=== PATIENT | male | born 1965 | race African-American/Black ===

== ENCOUNTER 2024-04-27 00:37 | Inpatient (IN) | payer OTHER ==
[2024-04-27 01:54] LABS: VENOUS BASE EXCESS -1.6 mmol/L (-2-2); VENOUS O2 SATURATION 48.3 % (70-80); VENOUS PCO2 39.2 mmHg (38-52); VENOUS PH 7.389 (7.310-7.410)
[2024-04-27] MEDS ORDERED: AZITHROMYCIN IVPB 500 MG/250 ML BAG IVPB ONE (02:05)
[2024-04-27] MEDS: ACETAMINOPHEN 1000 MG/100 ML BAG IVPB ONE (02:09)
[2024-04-27 02:16] LABS: EPI CELLS REVIEW /uL (0-25.1); HYALINE CASTS REVIEW /uL (0-3.1); PH,URINE 5.5 (5.0-8.0); URINE APPEARANCE CLEAR; URINE BACTERIA REVIEW /uL (0-1359); URINE BILIRUBIN NEGATIVE (NEGATIVE); URINE COLOR YELLOW; URINE GLUCOSE (UA) 3+ (NEGATIVE); URINE KETONE TRACE (NEGATIVE); URINE LEUK ESTERASE NEGATIVE (NEGATIVE); URINE NITRITE NEGATIVE (NEGATIVE); URINE PROTEIN 1+ (NEGATIVE); URINE RBC REVIEW /uL (0-23.9)
[2024-04-27] MEDS: CEFTRIAXONE 1 GM in DEXTROSE 5%-WATER - 100 ML IVPB ONE (02:32)
[2024-04-27] MEDS: AZITHROMYCIN IVPB 500 MG in DEXTROSE 5%-WATER - 250 ML IVPB ONE (02:32)
[2024-04-27] MEDS ORDERED: ACETAMINOPHEN INJECTION 100 ML ONE (02:42)
[2024-04-27] MEDS ORDERED: CEFTRIAXONE 1 G/50 ML PREMIX 50 ML IVPB ONE (02:42)
[2024-04-27 02:55] LABS: BASO % 0.2 % (0-2.0); EOS % 0.4 % (0-4.5); HEMATOCRIT 30.2 % (35.4-49); HEMOGLOBIN 9.8 GM/dL (11.7-16.9); LYMPH % 12.4 % (8-40); MCH 23.9 pg (25.7-33.7); MCHC 32.5 g/dl (32.0-35.9); MEAN CELL VOLUME 73.7 fl (80-96); MEAN PLT VOLUME 8.4 fl (7.5-11.1); MONO % 9.2 % (3.8-10.2); NEUT % 77.8 % (42.8-82.8); PLATELET COUNT 199 10^3/uL (134-434); WHITE BLOOD COUNT 9.9 K/mm3 (4.0-10.0)
[2024-04-27 02:57] LABS: COCAINE, UR NEGATIVE (NEGATIVE); INR 1.15 (0.83-1.09); OPIATES, URI NEGATIVE (NEGATIVE); PHENCYCLIDINE,URINE NEGATIVE (NEGATIVE); PROTHROMBIN TIME (PATIENT) 12.7 SEC (9.7-13.0); URINE AMPHETAMINES NEGATIVE (NEGATIVE); URINE BARBITURATES NEGATIVE (NEGATIVE); URINE BENZODIAZEPINES NEGATIVE (NEGATIVE)
[2024-04-27 02:58] LABS: METHADONE, UR NEGATIVE (NEGATIVE)
[2024-04-27 02:59] LABS: ACTIVATED PTT 27.7 SECONDS (25.2-36.5)
[2024-04-27] MEDS: SODIUM CHLORIDE 0.9% 500 ML INFUS.BAG IV ONE ×2 (03:43→06:24)
[2024-04-27] MEDS ORDERED: MAGNESIUM SULFATE IN WATER 2 GM/50 ML IVPB IVPB ONE (04:07)
[2024-04-27] MEDS: MAGNESIUM SULFATE IN WATER 2 GM/50 ML IVPB IVPB ONE (04:10)
[2024-04-27 05:32] LABS: ANION GAP 11 mmol/L (4-13)
[2024-04-27 06:22] LABS: ALBUMIN 3.7 g/dl (3.4-5.0); ALK PHOS 66 U/L (45-117); BILIRUBIN,TOTAL 0.4 mg/dL (0.2-1); BLOOD UREA NITROGEN 22.8 mg/dL (7-18); CALCIUM 9.2 mg/dL (8.5-10.1); CHLORIDE 104 mmol/L (98-107); CO2 26 mmol/L (21-32); CREATININE 1.7 mg/dL (0.55-1.3); GLUCOSE,RANDOM 234 mg/dL (74-106); MAGNESIUM 1.7 mg/dL (1.8-2.4); PHOSPHOROUS 2.8 mg/dL (2.5-4.9); POTASSIUM 3.7 mmol/L (3.5-5.1); SGOT/AST 44 U/L (15-37); SGPT/ALT 26 U/L (13-61); SODIUM 141 mmol/L (136-145); TOT PROT 7.1 g/dl (6.4-8.2)
[2024-04-27 06:37] LABS: BF GLUCOSE (CSF ONLY) 140 mg/dL (40-70)
[2024-04-27 07:21] LABS: CSF COLOR COLORLESS (COLORLESS)
[2024-04-27 07:22] LABS: CSF APPEARANCE CLEAR (CLEAR); CSF WBC 2 mm3 (0-5)
[2024-04-27] MEDS: CEFTRIAXONE 1 G/50 ML PREMIX 50 ML IVPB SCH (11:06)
[2024-04-27] MEDS: SODIUM CHLORIDE 1,000 ML IV SCH (11:06)
[2024-04-27] MEDS: amLODIPine BESYLATE 5 MG TABLET (FP) PO SCH (11:06)
[2024-04-27 11:23] VITALS: BMI 29.8
[2024-04-27 12:09] LABS: IRON SERUM 21 ug/dL (50-175); TOTAL IRON BINDING CAPACITY 251 ug/dL (250-450)
[2024-04-27] MEDS: INSULIN ASPART SLIDING SCALE (NOVOLOG) 1 VIAL SQ SCH (12:46)
[2024-04-27 13:51] LABS: CHOLESTEROL 115 mg/dL (50-200)
[2024-04-27 13:53] LABS: LDL CHOLESTEROL (ONLY SJRH) 40 mg/dL (5-100)
[2024-04-27 13:54] LABS: HDL CHOLESTEROL 62 mg/dL (40-60)
[2024-04-27] MEDS: HEPARIN NA (PORCINE) 5,000 UNITS/ML 1ML VIAL SQ SCH (14:02)
[2024-04-28 08:32] LABS: HEMATOCRIT 25.9 % (35.4-49); HEMOGLOBIN 8.3 GM/dL (11.7-16.9); MCH 24.2 pg (25.7-33.7); MCHC 31.9 g/dl (32.0-35.9); MEAN CELL VOLUME 75.8 fl (80-96); MEAN PLT VOLUME 8.6 fl (7.5-11.1); PLATELET COUNT 173 10^3/uL (134-434); RBC 3.42 M/mm3 (4.00-5.60); RDW 14.6 % (11.9-15.9); WHITE BLOOD COUNT 6.1 K/mm3 (4.0-10.0)
[2024-04-28 08:52] LABS: POTASSIUM 3.3 mmol/L (3.5-5.1)
[2024-04-28 09:03] LABS: BLOOD UREA NITROGEN 11.4 mg/dL (7-18); CALCIUM 8.2 mg/dL (8.5-10.1); MAGNESIUM 1.7 mg/dL (1.8-2.4)
[2024-04-28 09:05] LABS: ALBUMIN 2.8 g/dl (3.4-5.0)
[2024-04-28 09:06] LABS: CREATININE 1.2 mg/dL (0.55-1.3); PHOSPHOROUS 2.6 mg/dL (2.5-4.9)
[2024-04-28 09:08] LABS: BILIRUBIN,TOTAL 0.4 mg/dL (0.2-1); TOT PROT 5.6 g/dl (6.4-8.2)
[2024-04-28] MEDS: LORazepam 1 MG TABLET PO PRN (09:56)
[2024-04-28] MEDS ORDERED: INSULIN ASPART SLIDING SCALE (NOVOLOG) 1 VIAL SQ ONE (11:22)
[2024-04-28] MEDS: ALBUTEROL SO4 2.5/IPRATROPIUM 0.5 INH SOL 3 ML VIAL.NEB. NEB SCH (11:32)
[2024-04-28] MEDS: AZITHROMYCIN IVPB 500 MG/250 ML BAG IVPB SCH (13:03)
[2024-04-28 18:20] LABS: HIV INTERPRETATION NEGATIVE (NEGATIVE)
[2024-04-28] MEDS: POTASSIUM CHLORIDE TABS 20 MEQ TABLET.ER (FP) PO SCH (21:36)
[2024-04-29 08:07] LABS: BASO % 0.6 % (0-2.0); EOS % 3.5 % (0-4.5); HEMATOCRIT 27.9 % (35.4-49); HEMOGLOBIN 9.2 GM/dL (11.7-16.9); LYMPH % 26.7 % (8-40); MCH 24.4 pg (25.7-33.7); MEAN PLT VOLUME 8.6 fl (7.5-11.1); MONO % 9.9 % (3.8-10.2); NEUT % 59.3 % (42.8-82.8); PLATELET COUNT 176 10^3/uL (134-434); RBC 3.77 M/mm3 (4.00-5.60); RDW 14.8 % (11.9-15.9); WHITE BLOOD COUNT 5.8 K/mm3 (4.0-10.0)
[2024-04-29 08:18] LABS: POTASSIUM 3.4 mmol/L (3.5-5.1)
[2024-04-29 08:24] LABS: ALBUMIN 2.8 g/dl (3.4-5.0); BLOOD UREA NITROGEN 9.5 mg/dL (7-18); CALCIUM 8.4 mg/dL (8.5-10.1); MAGNESIUM 1.6 mg/dL (1.8-2.4)
[2024-04-29 08:27] LABS: CREATININE 1.1 mg/dL (0.55-1.3)
[2024-04-29 08:29] LABS: BILIRUBIN,TOTAL 0.4 mg/dL (0.2-1); TOT PROT 5.8 g/dl (6.4-8.2)
[2024-04-29] MEDS: MAGNESIUM OXIDE 400 MG TABLET (FP) PO ONE (10:54)
[2024-04-29] MEDS: ASPIRIN COATED 81 MG TABLET.EC PO SCH (12:53)
[2024-04-29] MEDS: MULTIVITAMINS (DAILY MVI) TABLET (FP) PO SCH (13:57)
[2024-04-29] MEDS: FOLIC ACID 1 MG TABLET (FP) PO SCH (13:57)
[2024-04-29] MEDS: THIAMINE 100 MG TABLET PO SCH (13:57)
[2024-04-29] MEDS ORDERED: INSULIN ASPART SLIDING SCALE (NOVOLOG) 1 VIAL SQ ONE (21:02)
[2024-04-30] MEDS ORDERED: LORazepam 2 MG/ML SDV VIAL ONE (00:50)
[2024-04-30] MEDS: LORazepam 2 MG/ML SDV VIAL IVPUSH ONE (01:00)
[2024-04-30 09:49] LABS: BASO % 0.6 % (0-2.0); EOS % 3.1 % (0-4.5); HEMATOCRIT 30.9 % (35.4-49); HEMOGLOBIN 9.8 GM/dL (11.7-16.9); LYMPH % 33.9 % (8-40); MCH 24.1 pg (25.7-33.7); MCHC 31.6 g/dl (32.0-35.9); MEAN CELL VOLUME 76.1 fl (80-96); MEAN PLT VOLUME 8.6 fl (7.5-11.1); MONO % 10.7 % (3.8-10.2); NEUT % 51.7 % (42.8-82.8); PLATELET COUNT 216 10^3/uL (134-434); RBC 4.06 M/mm3 (4.00-5.60); RDW 14.7 % (11.9-15.9); WHITE BLOOD COUNT 4.8 K/mm3 (4.0-10.0)
[2024-04-30 10:10] LABS: POTASSIUM 3.8 mmol/L (3.5-5.1)
[2024-04-30] MEDS: amLODIPine BESYLATE 5 MG TABLET (FP) PO SCH (10:10)
[2024-04-30 10:12] LABS: CALCIUM 8.8 mg/dL (8.5-10.1)
[2024-04-30 10:13] LABS: BLOOD UREA NITROGEN 8.2 mg/dL (7-18)
[2024-04-30 10:16] LABS: MAGNESIUM 1.9 mg/dL (1.8-2.4)
[2024-04-30 10:18] LABS: BILIRUBIN,TOTAL 0.4 mg/dL (0.2-1); TOT PROT 6.4 g/dl (6.4-8.2)
[2024-04-30 10:53] LABS: CHOLESTEROL 128 mg/dL (50-200)
[2024-04-30 10:55] LABS: LDL CHOLESTEROL (ONLY SJRH) 62 mg/dL (5-100)
[2024-04-30 10:57] LABS: HDL CHOLESTEROL 57 mg/dL (40-60)
[2024-04-30] MEDS ORDERED: INSULIN ASPART SLIDING SCALE (NOVOLOG) 1 VIAL SQ ONE ×2 (17:28→21:18)
[2024-04-30] MEDS: THIAMINE HCL 200 MG/2 ML VIAL IVPB SCH (23:00)
[2024-05-01 09:35] LABS: BASO % 0.8 % (0-2.0); EOS % 3.8 % (0-4.5); HEMATOCRIT 31.1 % (35.4-49); HEMOGLOBIN 9.9 GM/dL (11.7-16.9); LYMPH % 43.9 % (8-40); MCH 23.9 pg (25.7-33.7); MCHC 31.7 g/dl (32.0-35.9); MEAN CELL VOLUME 75.2 fl (80-96); MEAN PLT VOLUME 8.6 fl (7.5-11.1); MONO % 11.3 % (3.8-10.2); NEUT % 40.2 % (42.8-82.8); PLATELET COUNT 238 10^3/uL (134-434); RBC 4.14 M/mm3 (4.00-5.60); RDW 14.6 % (11.9-15.9); WHITE BLOOD COUNT 3.6 K/mm3 (4.0-10.0)
[2024-05-01 09:55] LABS: POTASSIUM 3.5 mmol/L (3.5-5.1)
[2024-05-01 10:04] LABS: BLOOD UREA NITROGEN 6.3 mg/dL (7-18); CALCIUM 8.7 mg/dL (8.5-10.1)
[2024-05-01 10:05] LABS: ALBUMIN 3.1 g/dl (3.4-5.0)
[2024-05-01 10:08] LABS: PHOSPHOROUS 2.6 mg/dL (2.5-4.9)
[2024-05-01 10:09] LABS: BILIRUBIN,TOTAL 0.4 mg/dL (0.2-1); TOT PROT 6.5 g/dl (6.4-8.2)
[2024-05-01 10:10] LABS: MAGNESIUM 1.9 mg/dL (1.8-2.4)
[2024-05-01] MEDS ORDERED: INSULIN ASPART SLIDING SCALE (NOVOLOG) 1 VIAL SQ ONE (11:05)
[2024-05-02 09:19] LABS: BASO % 1.1 % (0-2.0); EOS % 4.3 % (0-4.5); HEMATOCRIT 32.8 % (35.4-49); HEMOGLOBIN 10.4 GM/dL (11.7-16.9); LYMPH % 41.1 % (8-40); MCH 24.2 pg (25.7-33.7); MCHC 31.6 g/dl (32.0-35.9); MEAN CELL VOLUME 76.6 fl (80-96); MEAN PLT VOLUME 8.2 fl (7.5-11.1); MONO % 10.4 % (3.8-10.2); NEUT % 43.1 % (42.8-82.8); PLATELET COUNT 253 10^3/uL (134-434); RBC 4.28 M/mm3 (4.00-5.60); RDW 15.1 % (11.9-15.9); WHITE BLOOD COUNT 3.6 K/mm3 (4.0-10.0)
[2024-05-02 09:31] LABS: POTASSIUM 3.8 mmol/L (3.5-5.1)
[2024-05-02 09:39] LABS: BLOOD UREA NITROGEN 9.1 mg/dL (7-18); CALCIUM 9.1 mg/dL (8.5-10.1)
[2024-05-02 09:40] LABS: ALBUMIN 3.2 g/dl (3.4-5.0); MAGNESIUM 1.9 mg/dL (1.8-2.4)
[2024-05-02 09:43] LABS: CREATININE 1.3 mg/dL (0.55-1.3); PHOSPHOROUS 3.2 mg/dL (2.5-4.9)
[2024-05-02 09:44] LABS: BILIRUBIN,TOTAL 0.4 mg/dL (0.2-1); TOT PROT 6.8 g/dl (6.4-8.2)
[2024-05-02] MEDS ORDERED: INSULIN ASPART SLIDING SCALE (NOVOLOG) 1 VIAL SQ ONE ×2 (11:01→15:56)
[2024-05-02] MEDS ORDERED: ACETAMINOPHEN 500 MG TABLET (FP) PO PRN (15:59)
[2024-05-03] MEDS ORDERED: THIAMINE HCL 200 MG/2 ML VIAL IVPB SCH (10:00)
[2024-05-03] MEDS: THIAMINE HCL 200 MG/2 ML VIAL IVPB SCH (10:01)
[2024-05-03 11:11] LABS: BASO % 0.6 % (0-2.0); EOS % 4.9 % (0-4.5); HEMATOCRIT 29.1 % (35.4-49); HEMOGLOBIN 9.4 GM/dL (11.7-16.9); LYMPH % 37.4 % (8-40); MCH 24.1 pg (25.7-33.7); MCHC 32.4 g/dl (32.0-35.9); MEAN CELL VOLUME 74.5 fl (80-96); MEAN PLT VOLUME 8.1 fl (7.5-11.1); NEUT % 45.1 % (42.8-82.8); PLATELET COUNT 222 10^3/uL (134-434); RBC 3.91 M/mm3 (4.00-5.60); RDW 15.3 % (11.9-15.9); WHITE BLOOD COUNT 3.2 K/mm3 (4.0-10.0)
[2024-05-03 11:28] LABS: POTASSIUM 3.8 mmol/L (3.5-5.1)
[2024-05-03 11:51] LABS: ALBUMIN 2.9 g/dl (3.4-5.0)
[2024-05-03 11:54] LABS: PHOSPHOROUS 2.7 mg/dL (2.5-4.9)
[2024-05-03 11:57] LABS: BILIRUBIN,TOTAL 0.3 mg/dL (0.2-1)
[2024-05-03 12:26] LABS: CALCIUM 8.9 mg/dL (8.5-10.1)
[2024-05-03 12:27] LABS: MAGNESIUM 1.8 mg/dL (1.8-2.4)
[2024-05-03 12:30] LABS: CREATININE 1.1 mg/dL (0.55-1.3)
[2024-05-03 12:31] LABS: TOT PROT 6.2 g/dl (6.4-8.2)
[2024-05-03] MEDS: LISINOPRIL 10 MG TABLET PO ONE (12:55)
[2024-05-04] MEDS: LISINOPRIL 10 MG TABLET PO SCH (09:01)
[2024-05-04 09:09] LABS: EOS % 5.9 % (0-4.5); HEMATOCRIT 31.7 % (35.4-49); MCH 24.2 pg (25.7-33.7); MCHC 31.5 g/dl (32.0-35.9); MEAN CELL VOLUME 76.9 fl (80-96); MEAN PLT VOLUME 8.7 fl (7.5-11.1); NEUT % 38.1 % (42.8-82.8); PLATELET COUNT 234 10^3/uL (134-434); RBC 4.12 M/mm3 (4.00-5.60); RDW 14.8 % (11.9-15.9); WHITE BLOOD COUNT 3.2 K/mm3 (4.0-10.0)
[2024-05-04 09:33] LABS: POTASSIUM 3.9 mmol/L (3.5-5.1)
[2024-05-04 09:40] LABS: ALBUMIN 3.1 g/dl (3.4-5.0); BLOOD UREA NITROGEN 12.3 mg/dL (7-18); CALCIUM 8.8 mg/dL (8.5-10.1)
[2024-05-04 09:41] LABS: MAGNESIUM 1.9 mg/dL (1.8-2.4)
[2024-05-04 09:43] LABS: PHOSPHOROUS 3.2 mg/dL (2.5-4.9)
[2024-05-04 09:45] LABS: BILIRUBIN,TOTAL 0.4 mg/dL (0.2-1); TOT PROT 6.5 g/dl (6.4-8.2)
[2024-05-04] MEDS: ATORVASTATIN CA 20 MG TABLET (FP) PO SCH (21:15)
[2024-05-04] MEDS ORDERED: ATORVASTATIN CA 20 MG TABLET (FP) PO SCH (22:00)
[2024-05-05 08:24] LABS: BASO % 0.9 % (0-2.0); EOS % 4.6 % (0-4.5); HEMATOCRIT 29.2 % (35.4-49); HEMOGLOBIN 9.3 GM/dL (11.7-16.9); LYMPH % 51.9 % (8-40); MCH 24.2 pg (25.7-33.7); MCHC 31.8 g/dl (32.0-35.9); MEAN PLT VOLUME 8.4 fl (7.5-11.1); MONO % 11.6 % (3.8-10.2); PLATELET COUNT 231 10^3/uL (134-434); RBC 3.84 M/mm3 (4.00-5.60); RDW 14.7 % (11.9-15.9)
[2024-05-05 08:40] LABS: POTASSIUM 3.7 mmol/L (3.5-5.1)
[2024-05-05 08:44] LABS: BLOOD UREA NITROGEN 12.3 mg/dL (7-18); CALCIUM 8.9 mg/dL (8.5-10.1); MAGNESIUM 1.7 mg/dL (1.8-2.4)
[2024-05-05 08:47] LABS: CREATININE 1.1 mg/dL (0.55-1.3)
[2024-05-05 08:48] LABS: PHOSPHOROUS 3.3 mg/dL (2.5-4.9)
[2024-05-05 08:49] LABS: BILIRUBIN,TOTAL 0.4 mg/dL (0.2-1); TOT PROT 6.2 g/dl (6.4-8.2)
[2024-05-05] MEDS: LISINOPRIL 20 MG TABLET PO SCH (09:36)
[2024-05-05] MEDS: CLOPIDOGREL BISULFATE 75 MG TABLET (FP) PO SCH (09:37)
[2024-05-05 17:04] LABS: PH,URINE 6.5 (5.0-8.0); URINE APPEARANCE CLEAR; URINE BILIRUBIN NEGATIVE (NEGATIVE); URINE COLOR YELLOW; URINE GLUCOSE (UA) 1+ (NEGATIVE); URINE KETONE NEGATIVE (NEGATIVE); URINE LEUK ESTERASE NEGATIVE (NEGATIVE); URINE NITRITE NEGATIVE (NEGATIVE); URINE PROTEIN NEGATIVE (NEGATIVE); URINE UROBILINOGEN 0.2 mg/dL (0.2-1.0)
[2024-05-05] MEDS: MAGNESIUM SULFATE IN WATER 2 GM/50 ML IVPB IVPB ONE (17:08)
[2024-05-06] MEDS: HYDROCHLOROTHIAZIDE 12.5 MG CAPSULE (FP) PO SCH (09:40)
[2024-05-06 11:23] LABS: BLOOD UREA NITROGEN 12.9 mg/dL (7-18); CALCIUM 8.8 mg/dL (8.5-10.1)
[2024-05-06 11:24] LABS: MAGNESIUM 1.7 mg/dL (1.8-2.4)
[2024-05-06 11:27] LABS: CREATININE 1.2 mg/dL (0.55-1.3); PHOSPHOROUS 2.7 mg/dL (2.5-4.9)
[2024-05-06 11:28] LABS: BILIRUBIN,TOTAL 0.4 mg/dL (0.2-1); TOT PROT 6.2 g/dl (6.4-8.2)
[2024-05-06] MEDS ORDERED: INSULIN ASPART SLIDING SCALE (NOVOLOG) 1 VIAL SQ ONE (20:51)
[2024-05-07 09:46] LABS: POTASSIUM 3.9 mmol/L (3.5-5.1)
[2024-05-07 09:49] LABS: ALBUMIN 3.1 g/dl (3.4-5.0); BLOOD UREA NITROGEN 10.5 mg/dL (7-18); CALCIUM 8.8 mg/dL (8.5-10.1)
[2024-05-07 09:50] LABS: MAGNESIUM 1.5 mg/dL (1.8-2.4)
[2024-05-07 09:53] LABS: CREATININE 1.2 mg/dL (0.55-1.3); PHOSPHOROUS 3.6 mg/dL (2.5-4.9)
[2024-05-07 09:54] LABS: BILIRUBIN,TOTAL 0.5 mg/dL (0.2-1); TOT PROT 6.4 g/dl (6.4-8.2)
[2024-05-07] MEDS: LISINOPRIL 10 MG TABLET PO ONE (11:27)
[2024-05-07] MEDS: HYDROCHLOROTHIAZIDE 12.5 MG CAPSULE (FP) PO ONE (11:27)
[2024-05-07] MEDS: amLODIPine BESYLATE 10 MG TABLET (FP) PO ONE (11:27)
[2024-05-07] MEDS ORDERED: INSULIN ASPART SLIDING SCALE (NOVOLOG) 1 VIAL SQ ONE (21:01)
[2024-05-08] MEDS: THIAMINE 100 MG TABLET PO SCH (11:00)
[2024-05-09] MEDS ORDERED: INSULIN ASPART SLIDING SCALE (NOVOLOG) 1 VIAL SQ ONE (11:41)
[2024-05-09] MEDS: MAGNESIUM OXIDE 400 MG TABLET (FP) PO ONE (16:31)
[2024-05-11] MEDS ORDERED: INSULIN ASPART SLIDING SCALE (NOVOLOG) 1 VIAL SQ ONE (12:01)
[2024-05-11 14:12] VITALS: BP 153/89; PULSE 64; RESP 18; TEMP 97.3
== END 2024-05-11 14:53 | disposition home or self-care (01) | DRG 139 ==
LOC: JER 00:37 → JERBED 06:14 → J6S 09:25
PROVIDERS: ADMIT Internal Medicine; ATTEND Internal Medicine
DX: J18.9 Pneumonia, unspecified organism (principal); G93.41 Metabolic encephalopathy; N17.9 Acute kidney failure, unspecified; I10 Essential (primary) hypertension; I16.1 Hypertensive emergency; J98.11 Atelectasis; I63.40 Cerebral infarction due to embolism of unspecified cerebral artery; I69.351 Hemiplegia and hemiparesis following cerebral infarction affecting right dominant side; D50.9 Iron deficiency anemia, unspecified; F41.9 Anxiety disorder, unspecified; F01.50 Vascular dementia, unspecified severity, without behavioral disturbance, psychotic disturbance, mood disturbance, and anxiety; E11.65 Type 2 diabetes mellitus with hyperglycemia; R50.9 Fever, unspecified
CPT/HCPCS: 0241U-QW; 36415; 70450-TC; 70551-TC; 71045-TC-FY; 71250-TC; 80048; 80053; 80061; 80307; 81003; 82140; 82607; 82728; 82746; 82803; 82945; 82962; 83036; 83540; 83550; 83605; 83735; 83930; 84100; 84157; 84207; 84439; 84443; 84484; 85025; 85027; 85045; 85610; 85730; 86592; 86593; 86695; 86696; 86780; 86850; 86900; 86901; 87040; 87070; 87086; 87205; 87389; 87899; 93005; 93010; 93306-TC; 93880-TC; 94640; 97116-GP; 97162-GP; 99285-25; J0131; J1644